=== PATIENT | female | born 1990 | race African-American/Black ===

== ENCOUNTER 2021-02-20 10:27 | Outpatient (CLI) ==
[~2021-02-20] VITALS: Ht 170.2 cm; Wt 89.9 kg
[2021-02-20 10:42] VITALS: BP 112/67
[2021-02-20] MEDS ORDERED: MULTTAB20 PO (10:46)
[2021-02-20] MEDS ORDERED: HOME MED LIST COMPLETE! XX SCH (10:50)
--- NOTE | 2021-02-20 14:54 | IPNPDOC ---
Text Note Date of Service The patient was seen on 02/20/21. NOTE Chief Complaint: Ms. Li is a 30 year old at 31+6 weeks gestation presenting to L&D triage for complaints of palpitations, dizziness, shortness of breath. Patient presents: alone HPI: Reports this morning at work she felt suddenly dizzy, short of breath, chest tightness, and heart palpitations. [place] like she was having a panick attack. Has felt these in the past, but this one lasted longer than usual and felt she needed to be seen. Denies any leaking of fluid, vaginal bleeding. Reporting good movement. Denies any contractions. Denies any headaches, nausea, vomiting, RUQ pain. Denies any dysuria, vaginal discharge, vaginal itching/burning. Objective: [place]: [place] [address], P110, O2 Sat 100% RA, Temp 97.1 General: Alert. Well-appearing, in no acute distress PSYCH: Well groomed. Appropriate affect, normal mood. Conversed easily. Neuro: Oriented to time, place, and person. RESP: Lungs clear to auscultation bilaterally without wheezes, rales or rhonchi. Unlabored breathing. Thoracic expansion symmetric. No retractions. CV: Normal RRR, no murmur, c/w normal . No edema to bilateral upper and lower extremities. ABD: Soft, non-tender. BS normal x4 quad. No swelling, guarding, mass or lumps noted on palpation. MSK: legs without edema bilaterally. Normal mvmt all extremities. Steady gait. [place] from a seated position without assistance. SKIN: Dry, intact. No scars or rash noted. A/P 30yo G 1 P 0 at 31+6 wks gestation evaluated in L&D triage for palpitations, dizziness, shortness of breath. VSS and normal Benign physical exam Reactive NST, reassuring Anxiety: Patient declines medication or referral to behavioral health at this time. Quarters for remainder of day. Reassurance provided. Educated on routine OB return precautions and warning signs. Follow up in [facility] as previously scheduled for centering. VS,Fishbone, I+O VS, Fishbone, I+O Vital Signs Date Time Temp Pulse Resp B/P (MAP) Pulse Ox O2 Delivery O2 Flow Rate FiO2 02/20/21 11:08 101 100 Room Air 02/20/21 10:53 18 02/20/21 10:42 97.1 112/67 (82) YINA NEGRETE CNM Feb 20, 2021 13:13
== END 2021-02-20 11:57 | disposition home or self-care (01) ==
LOC: M LDO 10:27
PROVIDERS: ATTEND Advanced Practice Midwife
DX: O26.893 Other specified pregnancy related conditions, third trimester (principal); R00.2 Palpitations; R06.02 Shortness of breath; Z3A.31 31 weeks gestation of pregnancy
CPT/HCPCS: 59025; G0378; G0463

== ENCOUNTER 2021-04-17 12:23 | Inpatient (IN) | payer OTHER ==
[~2021-04-17] VITALS: Ht 167.6 cm; Wt 89.9 kg
[2021-04-17] VITALS (25 sets, daily range): BP systolic 94–129; BP diastolic 56–81
[~2021-04-17 12:23] MED LIST: MULTTAB20 PO
[2021-04-17] MEDS ORDERED: LACTATED RINGER'S 1000 ML IV STA (12:48)
[2021-04-17] MEDS ORDERED: OXYTOCIN DRIP 30 UNITS in IV 1 EA IV PRN (12:50)
[2021-04-17] MEDS ORDERED: LR 1,000 ML IV SCH (12:50)
[2021-04-17] MEDS ORDERED: HOME MED LIST COMPLETE! XX SCH (12:50)
[2021-04-17] MEDS ORDERED: LIDOCAINE 1% MDV 20ML VIAL INFIL PRN (12:50)
[2021-04-17 13:30] LABS: HEMATOCRIT 34.7 % (36.0-47.0); HEMOGLOBIN 10.9 g/dl (12.0-15.5); MEAN CORPUSCULAR HEMOGLOBIN 25.2 pg (27.0-33.0); MEAN CORPUSCULAR HGB CONC 31.4 g/dl (32.0-36.5); MEAN CORPUSCULAR VOLUME 80.3 fl (80.0-96.0); PLATELET COUNT, AUTOMATED 218 10^3/uL (150-450); RED BLOOD COUNT 4.32 10^6/uL (4.00-5.40); WHITE BLOOD COUNT 7.9 10^3/uL (4.0-10.0)
[2021-04-17] MEDS ORDERED: BUTORPHANOL 2 MG/ML INJ (J0595) IV ONE (16:35)
[2021-04-17] MEDS ORDERED: PROMETHAZINE INJ 25 MG/ML VIAL (J2550) IV ONE (16:35)
[2021-04-17] MEDS ORDERED: FENTANYL 2MCG/ML ROPIVACAINE 0.2% IN 0.9% NACL 100ML IVBAG As Ordered ONE (22:19)
[2021-04-17] MEDS ORDERED: OXYTOCIN 30 UNITS IN 0.9% NaCl 500ML IV BAG (J2590) As Ordered ONE (22:20)
[2021-04-17] MEDS ORDERED: NALOXONE INJ 0.4MG/1ML VIAL (J2310 PER 1MG) IV PRN (23:50)
[2021-04-17] MEDS ORDERED: ePHEDrine SULFATE 25 MG/5 ML(5MG/ML) SYRINGE IV PRN (23:50)
[2021-04-17] MEDS ORDERED: REFRIGERATOR IV KEYS XX PRN (23:50)
[2021-04-17] MEDS ORDERED: EPIDURAL COMMENT XX SCH (23:50)
[2021-04-17] MEDS ORDERED: ONDANSETRON 4MG/2ML VIAL IV PRN (23:50)
[2021-04-17] MEDS ORDERED: diphenhydrAMINE 50MG/ML VIAL (J1200) IV PRN (23:50)
[2021-04-17] MEDS ORDERED: LACTATED RINGER'S 1000 ML IV PRN (23:50)
[2021-04-17] MEDS ORDERED: EPIDURAL/PCA KEYS XX PRN (23:50)
[2021-04-17] MEDS: FENTANYL/ROPIVACAINE/NACL BAG 100 ML EPIDURAL SCH (23:58)
[2021-04-18] VITALS (46 sets, daily range): BP systolic 88–138; BP diastolic 54–109
[2021-04-18] MEDS ORDERED: ePHEDrine INJ 50 MG/ML VIAL IV STA (01:07)
[2021-04-18] MEDS: ePHEDrine INJ 50 MG/ML VIAL IV PRN ×2 (03:50→03:57)
[2021-04-18] MEDS ORDERED: TERBUTALINE SULFATE 1 MG/ML VIAL (J3105) SC STA ×2 (05:48→07:14)
[2021-04-18] MEDS: FENTANYL/ROPIVACAINE/NACL BAG 100 ML EPIDURAL SCH (07:44)
[2021-04-18] MEDS ORDERED: BICITRA 30ML SOLN UDC PO ONE (08:35)
[2021-04-18] MEDS ORDERED: AZITHROMYCIN INJ 500 MG, VIAL MATE ADAPTER 1 EACH in NS 250 ML IV ONE (08:35)
[2021-04-18] MEDS ORDERED: ceFAZolin SOD 2 GM in IV 1 EA IV ONE (08:35)
[2021-04-18] MEDS ORDERED: AZITHROMYCIN INJ 500MG VIAL As Ordered ONE (08:38)
[2021-04-18] MEDS ORDERED: BICITRA 30ML SOLN UDC As Ordered ONE (08:38)
[2021-04-18] MEDS ORDERED: LIDOCAINE 2% W/EPINEPHRINE 20ML VIAL **PRES FREE As Ordered ONE (08:49)
[2021-04-18] MEDS: PRENATAL VITAMINS CHEWABLE TABLET PO SCH (09:00)
[2021-04-18] MEDS ORDERED: MORPHINE PRES-FREE INJ 10 MG/10 ML VIAL (J2274) As Ordered ONE (09:32)
[2021-04-18] MEDS ORDERED: OXYTOCIN INJ 10 UNITS/ML VIAL (J2590) As Ordered ONE (09:32)
[2021-04-18 09:37] LABS: CORD GAS ABE V -10.7; CORD GAS HCO3 V 16.8 MEQ/L; CORD GAS O2 SAT V 45.3 %; CORD GAS PH V 7.209 UNITS; CORD GAS PO2 V 22.7 mmHg; CORD GAS SBC V 15.1 MEQ/L; CORD GAS TCO2 V 18.1 MEQ/L
[2021-04-18] MEDS ORDERED: METOCLOPRAMIDE INJ 10MG/2ML VIAL (J2765 PER 1) IV PRN (09:40)
[2021-04-18] MEDS ORDERED: NALBUPHINE HCL 10 MG/ML AMP (J2300) IV PRN ×2 (09:40→10:30)
[2021-04-18] MEDS ORDERED: diphenhydrAMINE 50MG/ML VIAL (J1200) IV PRN (09:40)
[2021-04-18] MEDS ORDERED: NALOXONE INJ 0.4MG/1ML VIAL (J2310 PER 1MG) IV PRN ×2 (09:40)
[2021-04-18] MEDS ORDERED: ONDANSETRON 4MG/2ML VIAL IV PRN ×3 (09:40→10:30)
[2021-04-18] MEDS ORDERED: KETOROLAC 60MG 2ML VIAL As Ordered ONE (10:07)
[2021-04-18] MEDS ORDERED: oxyCODONE 5MG TAB PO PRN ×2 (10:15→10:30)
[2021-04-18] MEDS ORDERED: RHOGAM 300 MCG (1500 IU) INJ (J2790) IM SCH (10:15)
[2021-04-18] MEDS ORDERED: ACETAMINOPHEN 500 MG TAB PO PRN (10:15)
[2021-04-18] MEDS ORDERED: SIMETHICONE 80MG CHEW TAB PO PRN (10:15)
[2021-04-18] MEDS ORDERED: OXYTOCIN DRIP 30 UNITS in IV 1 EA IV SCH (10:15)
[2021-04-18] MEDS ORDERED: LR 1,000 ML IV SCH (10:30)
[2021-04-18] MEDS ORDERED: fentaNYL 100 MCG/2 ML INJECTION IV PRN (10:30)
[2021-04-18] MEDS: KETOROLAC 30 MG/ML 1ML VIAL IV SCH ×2 (15:37→21:17)
[2021-04-18] MEDS ORDERED: LIDOCAINE 1% SDV 5ML VIAL SC PRN (17:45)
[2021-04-18] MEDS: DOCUSATE SODIUM 100MG CAPSULE PO SCH (21:17)
[2021-04-19 02:00] VITALS: BP 102/64
[2021-04-19] MEDS: KETOROLAC 30 MG/ML 1ML VIAL IV SCH (03:23)
[2021-04-19] MEDS: oxyCODONE 5MG TAB PO PRN ×3 (05:54→22:49)
[2021-04-19 06:00] VITALS: BP 114/63
[2021-04-19 07:56] LABS: MEAN CORPUSCULAR HEMOGLOBIN 25.5 pg (27.0-33.0); MEAN CORPUSCULAR HGB CONC 31.5 g/dl (32.0-36.5); MEAN CORPUSCULAR VOLUME 80.7 fl (80.0-96.0); PLATELET COUNT, AUTOMATED 161 10^3/uL (150-450); RED BLOOD COUNT 3.22 10^6/uL (4.00-5.40); WHITE BLOOD COUNT 12.6 10^3/uL (4.0-10.0)
[2021-04-19 07:59] LABS: HEMOGLOBIN 8.2 g/dl (12.0-15.5)
[2021-04-19] MEDS: PRENATAL VITAMINS CHEWABLE TABLET PO SCH (09:02)
[2021-04-19] MEDS: DOCUSATE SODIUM 100MG CAPSULE PO SCH ×2 (09:02→20:29)
[2021-04-19 10:00] VITALS: BP 121/74
[2021-04-19] MEDS: IBUPROFEN 800 MG TAB PO SCH ×2 (12:09→20:29)
[2021-04-19 14:00] VITALS: BP 128/80
[2021-04-19 17:57] VITALS: BP 121/73
[2021-04-19 22:00] VITALS: BP 132/70
[2021-04-20 02:00] VITALS: BP 116/70
[2021-04-20] MEDS: IBUPROFEN 800 MG TAB PO SCH ×2 (04:54→11:46)
[2021-04-20 06:00] VITALS: BP 115/67
[2021-04-20] MEDS ORDERED: IBUP80TA PO (07:04)
[2021-04-20] MEDS ORDERED: COLA100C5 PO (07:04)
[2021-04-20] MEDS ORDERED: OXYC-517 PO (07:04)
[2021-04-20] MEDS: DOCUSATE SODIUM 100MG CAPSULE PO SCH (08:21)
[2021-04-20] MEDS: PRENATAL VITAMINS CHEWABLE TABLET PO SCH (08:21)
== END 2021-04-20 11:50 | disposition home or self-care (01) | DRG 773 ==
LOC: M LDO 12:23 → M LDI 12:48 → M OBS 04-18 11:22
PROVIDERS: ADMIT Registered Nurse; ATTEND Obstetrics & Gynecology
PROC: 10D00Z1 Extraction of Products of Conception, Low, Open Approach (ICD-10-PCS; principal; 2021-04-18 09:00)
DX: O76 Abnormality in fetal heart rate and rhythm complicating labor and delivery (principal); Z3A.39 39 weeks gestation of pregnancy; Z37.0 Single live birth

== ENCOUNTER → 2022-03-27 | Outpatient (CLI) | payer OTHER ==
[~2022-03-27] MED LIST changes: +COLA100C5 PO; +IBUP80TA PO; +OXYC-517 PO
== END ==
LOC: M RAD 14:48
PROVIDERS: ATTEND Student in an Organized Health Care Education/Training Program
DX: M54.89 Other dorsalgia (principal)